=== PATIENT | female | born 1990 | race Caucasian/White ===

== ENCOUNTER 2020-06-11 17:56 | Inpatient (IN) ==
[2020-06-11] MEDS ORDERED: Lactated Ringers 1000 ml BAG 1,000 ML IV ONE (19:23)
[2020-06-11] MEDS ORDERED: Lactated Ringers 1000 ml BAG 1,000 ML IV SCH (20:00)
[2020-06-11 20:44] LABS: Urine Benzodiazepine Screen None Detected (None Detect); Urine Opiates Screen None Detected (None Detect)
[2020-06-12] MEDS ORDERED: Promethazine INJ(RESTRICTED) 25 MG/ML 1 ml VIAL IM PRN (03:31)
[2020-06-12] MEDS ORDERED: Morphine 10 MG/ML VIAL (1 ml) IM PRN (03:31)
[2020-06-12 12:16] LABS: Urine Appearance Clear; Urine Bilirubin Negative (Negative); Urine Blood Negative (Negative); Urine Color Yellow; Urine Glucose Negative (Negative); Urine Ketones Negative (Negative); Urine Nitrite Negative (Negative); Urine Protein Negative (Negative); Urine Specific Gravity 1.008 (1.010-1.030); Urine Urobilinogen Negative (Negative)
[2020-06-12 13:36] LABS: ABS Basophils 0.1 10^3/ul (0-0.2); ABS Eosinophils 0.1 10^3/ul (0-0.6); ABS Lymphocytes 1.1 10^3/ul (1.0-4.8); ABS Monocytes 0.8 10^3/ul (0-0.8); Eosinophil % 0.8 %; Hematocrit 35 % (35-47); Hemoglobin 12.2 g/dL (12.0-16.0); Lymphocyte % 9.9 %; Mean Corpuscular HGB Conc 35 g/dL (31-36); Mean Corpuscular Hemoglobin 31 pg (27-31); Mean Corpuscular Volume 88 fL (80-97); Mean Platelet Volume 8.8 fL (7.4-10.4); Platelet Count 143 10^3/uL (150-450); Red Blood Count 3.96 10^6 /uL (3.70-4.87); Red Cell Distribution Width 13 % (10-15); White Blood Count 10.7 10^3/uL (3.5-10.8)
[2020-06-12 13:57] LABS: Albumin 3.6 g/dL (3.2-5.2); Albumin/Globulin Ratio 1.5 (1-3); BUN/Creatinine Ratio 12.3 (8-20); Calcium 8.9 mg/dL (8.6-10.3); EGFR African American 150.7 (>60); EGFR Non-African American 124.5 (>60); Globulin 2.4 g/dL (2-4); Potassium 3.6 mmol/L (3.5-5.0); Total Bilirubin 0.6 mg/dL (0.2-1.0)
[2020-06-12] MEDS ORDERED: Oxytocin in LR 20 UNITS/1,000 ML BAG IVPB SCH (14:00)
[2020-06-13] MEDS ORDERED: OBEPIDURAL 250 ML EPIDURAL ONE (13:15)
[2020-06-13] MEDS ORDERED: Lidocaine 1% MPF 5 ML VIAL ONE (13:52)
[2020-06-13] MEDS ORDERED: EPHEDrine (Pressors) 50 MG/ML VIAL IV PUSH PRN ×2 (15:25)
[2020-06-13] MEDS ORDERED: Phenylephrine 40 mcg/mL 10mL (400mcg) SYRINGE IV PUSH PRN ×2 (15:25)
[2020-06-13] MEDS ORDERED: Lactated Ringers 1000 ml BAG 1,000 ML IV ONE (15:25)
[2020-06-13] MEDS ORDERED: Sodium Citrate/Citric Acid LIQ 15 ML UDC PO PRN (15:25)
[2020-06-13] MEDS ORDERED: OBEPIDURAL 250 ML EPIDURAL SCH (16:00)
[2020-06-13] MEDS ORDERED: Lactated Ringers 1000 ml BAG 1,000 ML IV SCH ×2 (16:00→20:00)
[2020-06-13] MEDS ORDERED: RHO D Immune Globulin (HUMAN) 300 MCG = 1,500 I.U. INJ IM ONE (19:48)
[2020-06-13] MEDS ORDERED: Dibucaine 1% OINT 28.35 GM TUBE PR PRN (19:48)
[2020-06-13] MEDS ORDERED: Witch Hazel PAD JAR TOPICAL PRN (19:48)
[2020-06-13] MEDS ORDERED: Oxytocin in LR 20 UNITS/1,000 ML BAG IVPB SCH (20:00)
[2020-06-13] MEDS ORDERED: Lidocaine 1% VIAL 10 MG/ML VIAL ONE (20:04)
[2020-06-14 08:12] LABS: ABS Eosinophils 0.2 10^3/ul (0-0.6); ABS Lymphocytes 1.7 10^3/ul (1.0-4.8); ABS Monocytes 1.5 10^3/ul (0-0.8); Hematocrit 34 % (35-47); Lymphocyte % 10.8 %; Mean Corpuscular HGB Conc 35 g/dL (31-36); Mean Corpuscular Hemoglobin 31 pg (27-31); Mean Corpuscular Volume 88 fL (80-97); Mean Platelet Volume 8.8 fL (7.4-10.4); Platelet Count 149 10^3/uL (150-450); Red Blood Count 3.87 10^6 /uL (3.70-4.87); Red Cell Distribution Width 13 % (10-15); White Blood Count 15.6 10^3/uL (3.5-10.8)
[2020-06-14] MEDS ORDERED: RHO D Immune Globulin (HUMAN) 300 MCG = 1,500 I.U. INJ IM ONE (09:58)
[2020-06-15 07:54] VITALS: BP 130/79
== END 2020-06-15 11:54 | disposition home or self-care (01) | DRG 560 ==
LOC: MCHOBOUT 17:56 → MCHOB 18:16
PROVIDERS: ADMIT Midwife; ATTEND Midwife

== ENCOUNTER 2021-09-08 10:02 | Inpatient (IN) ==
[2021-09-08] MEDS ORDERED: Lactated Ringers 1000 ml BAG 1,000 ML IV ONE (10:43)
[2021-09-08] MEDS ORDERED: Buffered Lidocaine 1% SYRIN 1 ml INTRADERM ONE (10:43)
[2021-09-08] MEDS ORDERED: Lactated Ringers 1000 ml BAG 1,000 ML IV SCH ×2 (11:00→16:00)
[2021-09-08] MEDS ORDERED: Oxytocin in LR 20 UNITS/1,000 ML BAG IVPB SCH ×2 (11:00→16:00)
[2021-09-08 11:44] LABS: ABS Lymphocytes 1.1 10^3/ul (1.0-4.8); ABS Monocytes 0.7 10^3/ul (0-0.8); ABS Neutrophils 6.3 10^3/ul (1.5-7.7); Eosinophil % 0.4 %; Hematocrit 36 % (35-47); Hemoglobin 12.4 g/dL (12.0-16.0); Lymphocyte % 13.5 %; Mean Corpuscular HGB Conc 35 g/dL (31-36); Mean Corpuscular Hemoglobin 30 pg (27-31); Mean Corpuscular Volume 86 fL (80-97); Mean Platelet Volume 8.4 fL (7.4-10.4); Platelet Count 148 10^3/uL (150-450); Red Blood Count 4.12 10^6 /uL (3.70-4.87); Red Cell Distribution Width 14 % (10-15); White Blood Count 8.1 10^3/uL (3.5-10.8)
[2021-09-08 12:05] LABS: Albumin 3.5 g/dL (3.2-5.2); Albumin/Globulin Ratio 1.3 (1-3); Globulin 2.6 g/dL (2-4); Potassium 3.7 mmol/L (3.5-5.0); Total Bilirubin 0.4 mg/dL (0.2-1.0); Total Protein 6.1 g/dL (6.4-8.9)
[2021-09-08 12:17] LABS: Urine Benzodiazepine Screen None Detected (None Detect); Urine Cannabinoids Screen None Detected (None Detect); Urine Opiates Screen None Detected (None Detect)
[2021-09-08] MEDS ORDERED: OBEPIDURAL 0 ML EPIDURAL ONE (14:23)
[2021-09-08] MEDS ORDERED: fentaNYL 100 mcg/2 ml 50 MCG/ML VIAL ONE (14:41)
[2021-09-08] MEDS ORDERED: RHO D Immune Globulin (HUMAN) 300 MCG = 1,500 I.U. INJ IM PRN (15:22)
[2021-09-08] MEDS ORDERED: Witch Hazel PAD JAR TOPICAL PRN (15:22)
[2021-09-08] MEDS ORDERED: Dibucaine 1% OINT 28.35 GM TUBE PR PRN (15:22)
[2021-09-08] MEDS ORDERED: Methylergonovine 0.2 mg AMPULE 1 ml AMP ONE (18:17)
[2021-09-08] MEDS ORDERED: Lidocaine 1% VIAL 10 MG/ML VIAL ONE (18:36)
[2021-09-08] MEDS ORDERED: Methylergonovine 0.2 mg AMPULE 1 ml AMP IM ONE (20:31)
[2021-09-09 07:20] LABS: ABS Eosinophils 0.1 10^3/ul (0-0.6); ABS Lymphocytes 1.3 10^3/ul (1.0-4.8); ABS Monocytes 0.6 10^3/ul (0-0.8); ABS Neutrophils 6.2 10^3/ul (1.5-7.7); Eosinophil % 0.9 %; Hematocrit 30 % (35-47); Hemoglobin 10.5 g/dL (12.0-16.0); Mean Corpuscular HGB Conc 35 g/dL (31-36); Mean Corpuscular Hemoglobin 30 pg (27-31); Mean Corpuscular Volume 87 fL (80-97); Mean Platelet Volume 8.7 fL (7.4-10.4); Platelet Count 133 10^3/uL (150-450); Red Blood Count 3.47 10^6 /uL (3.70-4.87); Red Cell Distribution Width 14 % (10-15); White Blood Count 8.2 10^3/uL (3.5-10.8)
[2021-09-09 15:32] VITALS: BP 114/78
== END 2021-09-09 17:04 | disposition home or self-care (01) | DRG 560 ==
LOC: MCHOBOUT 10:02 → MCHOB 11:09
PROVIDERS: ADMIT Midwife; ATTEND Midwife

== ENCOUNTER 2023-04-18 18:05 | Inpatient (IN) ==
[2023-04-18] MEDS ORDERED: Dibucaine 1% OINT 28.35 GM TUBE PR PRN (20:46)
[2023-04-18] MEDS ORDERED: Witch Hazel PAD JAR TOPICAL PRN (20:46)
[2023-04-18] MEDS ORDERED: Oxytocin 10 UNITS/ML 1 ML VIAL IM ONE (20:46)
[2023-04-18] MEDS ORDERED: Glycerin ADULT 2.4 gm SUPP PR PRN (20:46)
[2023-04-18] MEDS ORDERED: Lactated Ringers 1000 ml BAG 1,000 ML IV SCH (21:00)
[2023-04-18] MEDS ORDERED: Oxytocin in LR 20,000 MILLI.UNIT/1,000 ML BAG IV ONE (22:11)
[2023-04-18 22:31] LABS: Hematocrit 37.5 % (35-45); Hemoglobin 12.8 g/dL (11.5-14.3); Mean Corpuscular Hgb Conc 34.2 g/dL (31-36); Mean Corpuscular Volume 87.7 fL (80-97); Mean Platelet Volume 8.4 fL (7.5-11.2); Platelet Count 182 10^3/uL (150-450); Red Blood Count 4.28 10^6/uL (3.63-4.92); Red Cell Distribution Width 14.4 % (12-17); White Blood Count 16.7 10^3/uL (3.8-11.8)
[2023-04-18] MEDS ORDERED: Oxytocin in LR 20,000 MILLI.UNIT/1,000 ML BAG IV SCH (22:45)
[2023-04-18] MEDS ORDERED: Tranexamic Acid 1,000 MG in NS 0.9% 50 ML IV ONE (23:00)
[2023-04-19 00:59] LABS: Urine Benzodiazepine Screen None Detected (None Detect); Urine Cannabinoids Screen None Detected (None Detect); Urine Opiates Screen None Detected (None Detect)
[2023-04-19] MEDS ORDERED: Lidocaine 1% VIAL 10 MG/ML VIAL 30 ML ONE (01:38)
[2023-04-19] MEDS ORDERED: RHO D Immune Globulin (HUMAN) 300 MCG = 1,500 I.U. INJ IM ONE (09:32)
[2023-04-19 18:38] LABS: Hematocrit 31.2 % (35-45); Hemoglobin 10.9 g/dL (11.5-14.3)
[2023-04-20 08:47] VITALS: BP 125/85
== END 2023-04-20 09:55 | disposition home or self-care (01) | DRG 560 ==
LOC: MCHOBOUT 18:05 → MCHOB 18:56
PROVIDERS: ADMIT Midwife; ATTEND Midwife

== ENCOUNTER 2024-12-04 14:46 | Inpatient (IN) ==
[2024-12-04] MEDS ORDERED: Lidocaine 1% VIAL 10 MG/ML 30 ML VIAL INJ PRN (15:57)
[2024-12-04 18:02] LABS: ABS Monocytes 0.7 10^3/uL (0.0-0.9); ABS Neutrophils 8.5 10^3/uL (1.5-7.6); Eosinophil % 0.2 %; Hematocrit 40.4 % (35-45); Hemoglobin 14.1 g/dL (11.5-14.3); Lymphocyte % 9.4 %; Mean Corpuscular Hemoglobin 30.6 pg (27-33); Mean Corpuscular Hgb Conc 34.8 g/dL (31-36); Mean Platelet Volume 8.7 fL (7.5-11.2); Platelet Count 136 10^3/uL (150-450); Red Blood Count 4.59 10^6/uL (3.63-4.92); White Blood Count 10.2 10^3/uL (3.8-11.8)
[2024-12-04] MEDS: Lactated Ringers 1000 ml BAG 1,000 ML IV ONE (18:09)
[2024-12-04] MEDS: Lactated Ringers 1000 ml BAG 1,000 ML IV SCH (18:09)
[2024-12-04] MEDS: Buffered Lidocaine 1% SYRIN 1 ml INTRADERM ONE (18:09)
[2024-12-04 18:18] LABS: Urine Creatinine Concentration 44.47 mg/dL (20.00-320.00); Urine TP Creat Ratio 0.22 mg/mg
[2024-12-04 18:26] LABS: Urine Benzodiazepine Screen None Detected (None Detect); Urine Cannabinoids Screen None Detected (None Detect); Urine Opiates Screen None Detected (None Detect)
[2024-12-04] MEDS ORDERED: Glycerin ADULT 2.4 gm SUPP PR PRN (18:31)
[2024-12-04] MEDS: Witch Hazel PAD JAR TOPICAL PRN (20:47)
[2024-12-04] MEDS: Dibucaine 1% OINT 28.35 GM TUBE PR PRN (20:47)
[2024-12-05 06:16] LABS: ABS Eosinophils 0.1 10^3/uL (0.0-0.5); ABS Lymphocytes 1.2 10^3/uL (1.0-4.8); ABS Monocytes 0.7 10^3/uL (0.0-0.9); ABS Neutrophils 6.7 10^3/uL (1.5-7.6); Eosinophil % 0.9 %; Hematocrit 33.4 % (35-45); Hemoglobin 11.5 g/dL (11.5-14.3); Lymphocyte % 14.2 %; Mean Corpuscular Hemoglobin 30.3 pg (27-33); Mean Corpuscular Hgb Conc 34.4 g/dL (31-36); Mean Corpuscular Volume 88.1 fL (80-97); Mean Platelet Volume 8.4 fL (7.5-11.2); Platelet Count 146 10^3/uL (150-450); Red Blood Count 3.79 10^6/uL (3.63-4.92); Red Cell Distribution Width 13.9 % (12-17); White Blood Count 8.8 10^3/uL (3.8-11.8)
[2024-12-05] MEDS: RHO D Immune Globulin (HUMAN) 300 MCG = 1,500 I.U. INJ IM ONE (17:32)
[2024-12-05 17:41] VITALS: BP 119/77
== END 2024-12-05 19:00 | disposition home or self-care (01) | DRG 807 ==
LOC: MCHOBOUT 14:46 → MCHOB 15:58
PROVIDERS: ADMIT Midwife